=== PATIENT | male | born 1970 | race Caucasian/White ===

== ENCOUNTER 2020-04-21 19:07 | Emergency (ER) | payer OTHER ==
[~2020-04-21] VITALS: Ht 170.2 cm; Wt 85.3 kg
[2020-04-21 19:30] VITALS: BP 189/111
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
--- NOTE | 2020-04-21 19:59 | NUR ---
ERMD EVALUATING PT
--- NOTE | 2020-04-21 20:30 | NUR ---
PT RETURNED FROM X RAY VIA WHEELCHAIR
--- NOTE | 2020-04-21 20:30 | NUR ---
PT RETURN FROM RAD
[2020-04-21] MEDS: KETOROLAC 30 MG/ML VIAL IM ONE (20:43)
--- NOTE | 2020-04-21 22:00 | NUR ---
PT STATES HIS PAIN HAS REDUCED TO 4/10 POST IM TORODOL AND DENIED NEEDING FURTHER PAIN MANAGEMENT AT THIS TIME.
[2020-04-21 22:45] VITALS: BP 135/70
== END 2020-04-21 22:45 | disposition home or self-care (01) ==
LOC: MED 19:07
DX: M25.532 Pain in left wrist (principal); V89.2XXA Person injured in unspecified motor-vehicle accident, traffic, initial encounter; Y93.89 Activity, other specified; Y92.89 Other specified places as the place of occurrence of the external cause; Y99.8 Other external cause status
CPT/HCPCS: 71045; 73110; 73130; 90471; 90715; 96372; 99284; J1885